=== PATIENT | female | born 1965 | race Caucasian/White ===

== ENCOUNTER 2016-08-20 12:26 | Emergency (ER) | payer OTHER ==
[2016-08-20] MEDS ORDERED: ONDANSETRON 4 MG/2 ML VIAL IVP STA ×2 (12:40→13:18)
[2016-08-20] MEDS ORDERED: HYDROmorphone 1 MG/ML SYRINGE IVP STA (12:40)
[2016-08-20] MEDS ORDERED: SODIUM CHLORIDE 0.9% 1,000 ML IV ONE (12:40)
[2016-08-20] MEDS ORDERED: HYDROmorphone 1 MG/ML SYRINGE ONE (12:42)
[2016-08-20] MEDS ORDERED: ONDANSETRON 4 MG/2 ML VIAL ONE ×2 (12:42→13:22)
--- NOTE | 2016-08-20 12:46 | ED Physician Documentation ---
PD HPI ABD PAIN - Stated complaint Stated Complaint: FEMALE - Chief complaint Chief Complaint: Abd Pain - History obtained from History obtained from: Patient - History of Present Illness Timing - onset: Other (50-year-old woman, relatively healthy, history of remote . 2 nights ago she got over her menses which was at a normal time, normal flow. Last night she had an upset stomach and vomited, forcefully such that she was incontinent of urine. Today she developed lower abdominal pain fairly acutely with hematuria and some pain radiation to the back. She is no longer nauseous. Her bowel movements have been normal. No fever.) Review of Systems Ten Systems: 10 systems reviewed and negative Constitutional: denies: Fever, Chills Cardiac: denies: Chest pain / pressure, Palpitations Respiratory: denies: Dyspnea, Cough GI: denies: Diarrhea, Hematemesis, Bloody / black stool PD PAST MEDICAL HISTORY - Past Medical History Past Medical History: Yes Musculoskeletal: Chronic back pain - Past Surgical History Past Surgical History: Yes Ortho: Arthroscopic surgery /[employer]: section - Present Medications Home Medications: Ambulatory Orders Medication Instructions Recorded Confirmed Ciprofloxacin HCl [Cipro] 500 mg PO BID #14 tablet 08/20/16 Ibuprofen 1 tab BID PRN 08/20/16 08/20/16 Meloxicam [Mobic] 7.5 mg PO BIDWM PRN #15 tablet 08/20/16 Ondansetron HCl [Zofran] 4 mg PO Q6H PRN #10 tablet 08/20/16 - Allergies Allergies/Adverse Reactions: Allergies Allergy/AdvReac Type Severity Reaction Status Date / Time No Known Drug Allergies Allergy Verified 08/20/16 12:32 - Social History Does the pt smoke?: No Smoking Status: Never smoker Does the pt drink ETOH?: Yes Does the pt have substance abuse?: No - Family History Family history: reports: Non contributory PD ED PE NORMAL - Vitals Vital signs reviewed: Yes - General General: Alert and oriented X 3, No acute distress - HEENT HEENT: PERRL, EOMI - Neck Neck: Supple, no meningeal sign, No bony TTP - Cardiac Cardiac: RRR, No murmur - Respiratory Respiratory: No respiratory distress, Clear bilaterally - Abdomen Abdomen: Other (Mild low abd TTP, No G/R/M) - Female Female : Pinion Staker present (Jazzmine Dougherty RN), Other (Small blood from cx, R adenxal TTP) - Back Back: No CVA TTP, No spinal TTP - Derm Derm: Normal color, Warm and dry - Extremities Extremities: No deformity, No tenderness to palpate, No edema, No calf tenderness / cord - Neuro Neuro: Alert and oriented X 3, Normal speech - Psych Psych: Normal mood, Normal affect Results - Vitals Vitals: Vital Signs - 24 hr 08/20/16 08/20/16 12:30 14:33 Temperature 36.7 C Heart Rate 87 84 Respiratory 18 16 Rate Blood Pressure 160/102 H 148/77 H O2 Saturation 95 95 Oxygen O2 Source Room air - Labs Labs: Laboratory Tests 08/20/16 08/20/16 08/20/16 10:50 10:50 12:45 WBC 12.3 H RBC 4.96 Hgb 14.7 Hct 43.2 MCV 87.1 MCH 29.7 MCHC 34.1 RDW 13.0 Plt Count 265 MPV 7.4 L Neut # 8.8 H Lymph # 2.3 [place] # 0.7 Eos # 0.4 Baso # 0.1 Absolute Nucleated RBC 0.00 Nucleated RBCs 0.0 Sodium 137 Potassium 3.8 Chloride 104 Carbon Dioxide 25 Anion Gap 8.0 BUN 13 Creatinine 0.6 Estimated GFR (MDRD) 106 Glucose 101 H Calcium 8.9 Total Bilirubin 0.6 AST 17 ALT 16 Alkaline Phosphatase 52 Total Protein 7.7 Albumin 4.1 Globulin 3.6 Albumin/Globulin Ratio 1.1 Lipase 22 Urine Color RED/BLOODY Urine Clarity BLOODY Urine pH 8.5 H Ur Specific [place] 1.020 Urine Protein 100 H Urine Glucose (UA) NEGATIVE Urine Ketones NEGATIVE Urine Occult Blood LARGE H Urine Nitrite NEGATIVE Urine Bilirubin NEGATIVE Urine Urobilinogen 0.2 (NORMAL) Ur Leukocyte Esterase NEGATIVE Urine RBC TNTC H Urine WBC 0-3 Ur Squamous Epith Cells NONE SEEN Urine Bacteria None Seen Ur Microscopic Review INDICATED Urine Culture Comments NOT INDICATED - Rads (name of study) CT A/P Radiology: EMP read contemporaneously (Sigmoid diverticulosis without other abnormality) PD MEDICAL DECISION MAKING - ED course ED course: 50-year-old woman presents with lower abdominal pain and vaginal bleeding versus hematuria. Differential diagnosis included renal colic, ovarian cyst, PID, cystitis, appendicitis. Her workup demonstrated a mildly elevated white blood cell count but a normal CT. She had no cervical motion tenderness but she did have some right adnexal tenderness without evidence of abnormality on CT there either. She is treated with antibiotics, her pain was much better here but did develop a lot of nausea after the pain medication. Close follow- up was advised. Departure - Departure Disposition: Home, Self Care Clinical Impression: Cystitis Abdominal pain Qualifiers: Abdominal location: lower abdomen, unspecified Qualified Code(s): R10.30 - Lower abdominal pain, unspecified Condition: Good Record reviewed to determine appropriate education?: Yes Instructions: ED Abdominal Pain Unkn Cause Prescriptions: Ciprofloxacin HCl [Cipro] 500 mg PO BID #14 tablet Meloxicam [Mobic] 7.5 mg PO BIDWM PRN #15 tablet PRN Reason: Pain Ondansetron HCl [Zofran] 4 mg PO Q6H PRN #10 tablet PRN Reason: Nausea / Vomiting Comments: Follow-up with your physician in 2-3 days. Return sooner if worse or if new symptoms develop. Your blood pressure was elevated today on check into the emergency department. This does not mean that you have hypertension, it is a common phenomenon to come to the emergency department and have elevated blood pressure. I recommend that she see her primary care physician within the week to have it rechecked when you are feeling better. Forms: Activity restrictions
[2016-08-20 13:10] LABS: BASOPHILS # (AUTO) 0.1 10^3/uL (0.0-0.1); BASOPHILS % (AUTO) 0.7 %; EOSINOPHILS # (AUTO) 0.4 10^3/uL (0.0-0.7); EOSINOPHILS % (AUTO) 2.9 %; HCT - HEMATOCRIT 43.2 % (37.0-47.0); HGB - HEMOGLOBIN 14.7 g/dL (12.0-16.0); LYMPHOCYTES # (AUTO) 2.3 10^3/uL (1.5-3.5); LYMPHOCYTES % (AUTO) 18.5 %; MEAN CORPUSCULAR HEMOGLOBIN 29.7 pg (27.0-31.0); MEAN CORPUSCULAR HGB CONC 34.1 g/dL (32.0-36.0); MEAN CORPUSCULAR VOLUME 87.1 fL (81.0-99.0); MEAN PLATELET VOLUME 7.4 fL (7.9-10.8); MONOCYTES # (AUTO) 0.7 10^3/uL (0.0-1.0); NEUTROPHILS # (AUTO) 8.8 10^3/uL (1.5-6.6); NEUTROPHILS % (AUTO) 71.9 %; RED BLOOD COUNT 4.96 10^6/uL (4.20-5.40); UNCORRECTED WHITE BLOOD COUNT 12.3 x10^3/uL; WHITE BLOOD COUNT 12.3 x10^3/uL (4.8-10.8)
[2016-08-20 13:23] LABS: ALBUMIN/GLOBULIN RATIO 1.1 (1.0-2.2); BILIRUBIN,TOTAL 0.6 mg/dL (0.2-1.0); CALCIUM 8.9 mg/dL (8.5-10.3); CREATININE 0.6 mg/dL (0.4-1.0); POTASSIUM 3.8 mmol/L (3.5-5.0); TOTAL PROTEIN 7.7 g/dL (6.7-8.2)
[2016-08-20 13:29] LABS: BILIRUBIN,URINE NEGATIVE (NEGATIVE); PH,URINE 8.5 PH (5.0-7.5)
[2016-08-20 13:31] LABS: UA w/ MICROSCOPIC CHARGE YES; UR CULTURE IF IND NOT INDICATED; WBC,URINE 0-3 /HPF (0-5)
[2016-08-20] MEDS ORDERED: IOPAMIDOL-300 100 ML VIAL IVP ONE (14:22)
--- NOTE | 2016-08-20 14:45 | CT Preliminary Report ---
Exam: CT Abdomen/Pelvis W/ IMPRESSION: Sigmoid diverticulosis, without CT evidence of diverticulitis. Normal kidneys. Normal jose c endix. [facility] SITE ID: [id number]
--- NOTE | 2016-08-20 14:47 | CT Report ---
EXAM: CT ABDOMEN AND PELVIS EXAM DATE: 08/20/2016 02:31 PM. CLINICAL HISTORY: IV only, abd pain, hematuria. COMPARISONS: None. TECHNIQUE: Routine helical CT imaging was performed through the abdomen and pelvis. IV contrast: 100 mL Isovue 300. Enteric contrast: No. Reconstructions: Coronal and sagittal. In accordance with CT protocol optimization, one or more of the following dose reduction techniques w ere utilized for this exam: automated exposure control, adjustment of mA and/or KV based on patient s ize, or use of iterative reconstructive technique. FINDINGS: Lung Bases: Unremarkable. Liver: Normal. No masses. Gallbladder/Bile Ducts: Unremarkable. Spleen: Normal. Pancreas: Normal. Adrenal Glands: Normal. Kidneys: Normal. No masses or hydronephrosis. Peritoneal Cavity/Bowel: Normal. No free fluid, free air or adenopathy. No masses or acute inflammato ry process. The appendix is well visualized and normal. Pelvic Organs: A few scattered sigmoid diverticula are noted, without CT evidence of diverticulitis. The bladder and visualized pelvic organs are within normal limits. Vasculature: No aneurysms or other significant abnormality. Bones: No significant abnormality. Other: None. IMPRESSION: Sigmoid diverticulosis, without CT evidence of diverticulitis. Normal kidneys. Normal jose c endix. [facility] Referring Provider Line: [phone] SITE ID: [id number]
[2016-08-20] MEDS ORDERED: PROMETHAZINE INJ 25 MG in SODIUM CHLORIDE 0.9% 50 ML IV STA (14:51)
[2016-08-20] MEDS ORDERED: PROMETHAZINE 25 MG/1 ML VIAL ONE (14:53)
[2016-08-20] MEDS ORDERED: cefTRIAXone 1 GM in SODIUM CHLORIDE 0.9% MINIBAG 100 ML IV STA (14:57)
[2016-08-20] MEDS ORDERED: KETOROLAC 60 MG/2 ML VIAL ONE (14:57)
[2016-08-20] MEDS ORDERED: KETOROLAC 60 MG/2 ML VIAL IVP STA (14:57)
[2016-08-20] MEDS ORDERED: cefTRIAXone 1 GM VIAL ONE (14:57)
[2016-08-20 15:51] VITALS: BP 130/72
== END 2016-08-20 15:54 | disposition home or self-care (01) ==
LOC: ED 12:26
DX: N30.90 Cystitis, unspecified without hematuria (principal); R10.30 Lower abdominal pain, unspecified
CPT/HCPCS: 36415; 74177; 80053; 81001; 83690; 85025; 87491; 87591; 96365; 96368; 96375; 96376; 99284; J1170; Q9967; 81003; 87086